=== PATIENT | female | born 1940 | race Caucasian/White ===

== ENCOUNTER → 2019-03-13 11:12 | Outpatient (CLI) | payer MEDICARE, OTHER, SELFPAY ==
--- NOTE | 2019-03-13 11:14 | DI.RAD.S_ITS ---
PROCEDURE: XR LUMBAR SPINE MIN 4V INDICATIONS: low back pain TECHNIQUE: 5 views of the lumbar spine were acquired. COMPARISON: None. FINDINGS: Bones: 5 nonrib-bearing vertebrae are present. There is grade 1 anterolisthesis of L4 on L5 and L5 on S1. Degenerative endplate changes and bilateral facet arthrosis throughout lumbar spine is seen more prominent at L4-5 and L5-S1 levels. No vertebral body compression fractures. No suspicious bony lesions. Soft tissues: Overlying bowel gas pattern is normal. No suspicious soft tissue calcifications. Oblique images: No gross pars defects. IMPRESSION: Degenerative disc disease throughout lumbar spine. Grade 1 anterolisthesis of L4 on L5 and L5 on S1. No gross pars defect. No acute compression fracture. Dictated by: Mac Quezada M.D. on 03/13/2019 at 13:23 Approved by: Mac Quezada M.D. on 03/13/2019 at 13:25
== END ==
PROVIDERS: PCP Family Medicine; Visit Provider Physical Medicine & Rehabilitation
DX: M54.5 Low back pain (principal); M51.36 Other intervertebral disc degeneration, lumbar region; M51.37 Other intervertebral disc degeneration, lumbosacral region; M43.16 Spondylolisthesis, lumbar region; M43.17 Spondylolisthesis, lumbosacral region
CPT/HCPCS: 72110; 99214

== ENCOUNTER → 2019-04-01 14:01 | Outpatient (CLI) | payer MEDICARE, OTHER, SELFPAY ==
--- NOTE | 2019-04-01 14:05 | DI.MRI.S_ITS ---
PROCEDURE: MR LUMBAR SPINE WO CON INDICATIONS: Low back pain TECHNIQUE: Noncontrast sagittal T1 spin echo and T2 fast echo, sagittal STIR, axial T1 and T2 fast spin echo through the lumbar spine. In cases with scoliosis, additional coronal T2 fast spin echo may be performed. COMPARISON: [facility], , L-SPINE WITHOUT CONTRAST, 06/01/2016, 9:05. FINDINGS: Image quality: Excellent. Alignment and Curvature: There is minimal anterolisthesis of L4 on L5. Bone Marrow: Marrow is of normal overall signal. No acute vertebral body compression fractures. Spinal Cord: Conus medullaris terminates at the L1 level. Visualized cord demonstrates normal signal and size. Paraspinous Soft Tissues: No paravertebral masses. L1-L2: Normal appearance. L2-L3: Disc desiccation signals and slightly decreased intervertebral disc space is seen. Diffuse disc bulge and bilateral facet arthrosis is noted with mild central canal stenosis and mild to moderate bilateral neuroforaminal narrowing. L3-L4: Decreased intervertebral disc space and degenerative endplate changes are seen. Broad-based disc bulge and bilateral facet arthrosis is noted with mild central canal stenosis and mild to moderate left-sided neural foramina narrowing. L4-L5: There is decreased intervertebral disc space and degenerative endplate changes. Broad-based disc bulge and bilateral facet arthrosis is seen causing moderate central canal stenosis and moderate to severe bilateral neural foramina narrowing. There is likely compression of bilateral exiting L4 nerve roots. L5-S1: Normal appearance. IMPRESSION: 1. Minimal anterolisthesis of L4 on L5. No compression fracture. No marrow edema. 2. Degenerative disc bulge and bilateral facet arthrosis at L2-3 through L4-5 levels causing mild to moderate central canal stenosis and bilateral neuroforaminal narrowing most prominent at L4-5 level as above. Dictated by: Mac Quezada M.D. on 04/01/2019 at 15:21 Approved by: Mac Quezada M.D. on 04/01/2019 at 15:27
== END ==
PROVIDERS: PCP Family Medicine; Visit Provider Physical Medicine & Rehabilitation
DX: M54.5 Low back pain (principal); M47.816 Spondylosis without myelopathy or radiculopathy, lumbar region; M51.36 Other intervertebral disc degeneration, lumbar region; M48.061 Spinal stenosis, lumbar region without neurogenic claudication
CPT/HCPCS: 72148

== ENCOUNTER 2019-04-04 09:42 | Outpatient (CLI) | payer MEDICARE, OTHER, SELFPAY ==
[2019-04-04] VITALS (7 sets, daily range): BP systolic 115–156; BP diastolic 42–97; PULSE 16–70; RESP 14–16; TEMP 37.4; O2SAT 95–100
--- NOTE | 2019-04-04 09:43 | DI.RAD.S_ITS ---
PROCEDURE: PAIN L/S FACET INJ/BLK 1ST ROYCE COMPARISON: None. INDICATIONS: SPONDYLOSIS FINDINGS: 6 intraoperative fluoroscopy images demonstrate needle placement at L4 L5 and S1 bilaterally. IMPRESSION: Fluoroscopy for pain management. Dictated by: Manuel Vora M.D. on 04/04/2019 at 14:21 Approved by: Manuel Vora M.D. on 04/04/2019 at 14:21
[2019-04-04] MEDS: MIDAZOLAM 5 MG/5 ML VIAL IV (10:33)
[2019-04-04] MEDS: fentaNYL 100 MCG/2 ML INJ 50 MCG IV (10:33)
[2019-04-04] MEDS: IOPAMIDOL 15 ML VIAL 3 ML INJ (10:45)
[2019-04-04] MEDS: BUPIVACAINE 0.5% (PF) VIAL 2 ML INJ (10:45)
[2019-04-04] MEDS: LIDOCAINE 1% 20 ML INJ 10 ML INJ (10:45)
[2019-04-04] MEDS: BETAMETHASONE 30 MG/5 ML MDV 12 MG INJ (10:46)
--- NOTE | 2019-04-04 10:49 | PC.NURSE ---
pt tolerated procedure well. Able to get off the table with standby assist. Transferred pt to pre procedure room for continued monitoring with [facility].
--- NOTE | 2019-04-04 10:53 | PM.PROC.1 ---
Procedures Date/Time Date of procedure: 04/04/19 Time of procedure: 10:53 General Procedure description: Procedure description: 1. FACET ARTHROPATHY PROCEDURES: 1. BILATERAL- L4, L5 and S1 MB BLOCKS PHYSICIAN: Néstor Bustillo, INDICATIONS Alta is referred by for treatment of Bilateral Axial LBP. DESCRIPTION OF PROCEDURE Fluoroscopically guided, contrast-controlled bilateral L4, L5 and S1 medial branch blocks with 0.5cc of 0.5% Marcaine. Following review of allergy and review of potential side effects and complications, including, but not necessarily limited to, infection, allergic reaction, local tissue breakdown, nerve injury, paralysis, stroke and possible , the patient indicated that the patient understood and agreed to proceed. An informed consent document was signed by the patient, witnessed by a nurse, and placed in the patient's chart. After review of previous anaesthesic history and IV conscious sedation the patient was deemed safe to proceed with todays procedure with IV conscious sedation as ASA class II designation. Safety time-out was performed to confirm patient ID, procedure to be performed and site of procedure. IV sedation was accomplished with a combination of 2mg of Versed and 50mcg of Fentanyl was administered by the RN after DO order, titrated to patient comfort during the course of the procedure while the patient remained responsive to all verbal commands In the prone position, following sterile prep and drape of the lumbar region, the right L4, L5 and S1 anatomical location of the medial branch of the dorsal ramus was identified fluoroscopically. Subsequently an anesthetic skin wheal using 1% lidocaine solution was initiated at each of the anatomical spots. Subsequently then a 22-gauge 3.5-inch spinal needle was atraumatically introduced and advanced under fluoroscopic guidance at each of the corresponding sites at the right L4, L5 and S1 MB. After negative aspiration, 0.2 cc of Isovue 200 was injected, confirming placement without vascular or intrathecal uptake. Subsequently then 0.5 cc of 0.5% Marcaine solution was injected at each of the corresponding sites at the right L4, L5 and S1 medial branch locations. The identical procedure was replicated on the left. The patient tolerated the procedure well without signs or symptoms of complications prior to transfer to the recovery area continued monitoring without incident. Post-procedure, the patient was monitored initiating provocative activities to measure the amount of relief from block of the facetogenic pain. The patient reported a VAS of 7 prior to the procedure and a post-procedure VAS of 1. It has been a pleasure to assist in the diagnostic and therapeutic care of your patient. Total Fluoroscopy Time: 24.8 seconds Total Conscious Sedation Time: 24min POST OP INSTRUCTIONS The patient was provided with a Pain Log to complete over the next several hours and subsequent days prior to the patient's follow up with the ordering physician. If the patient has binitrotoluene operator relief to the solution applied, then they may be a candidate for medial branch rhizotomy. The patient is aware, was provided, once again, with a Pain Log and will follow up with the referring physician for review and clinical correlation Néstor Bustillo DO Complications: none
--- NOTE | 2019-04-04 11:05 | PC.NURSE ---
ACCEPTED CARE OF PT IN POST PROC AREA IN STABLE CONDITION
== END 2019-04-04 11:25 | disposition home or self-care (01) ==
LOC: RAD 09:42
PROVIDERS: PCP Family Medicine; Visit Provider Physical Medicine & Rehabilitation
DX: M47.816 Spondylosis without myelopathy or radiculopathy, lumbar region (principal); M47.817 Spondylosis without myelopathy or radiculopathy, lumbosacral region
CPT/HCPCS: 64493; 64494; 99152; J0702; J2250; J3010

== ENCOUNTER 2019-07-25 10:41 | Outpatient (CLI) | payer MEDICARE, OTHER, SELFPAY ==
[2019-07-25] VITALS (11 sets, daily range): BP systolic 117–157; BP diastolic 56–81; PULSE 62–71; RESP 16–18; TEMP 36.7; O2SAT 94–98
--- NOTE | 2019-07-25 10:46 | DI.RAD.S_ITS ---
PROCEDURE: PAIN L/S MED/LAT N RFA BILAT INDICATIONS: SPONDYLOSIS FINDINGS: Fluoroscopic spot filming was performed to verify placement of spinal needles at the L4, L5 and S1 level(s), as labeled on the films. Appropriate location(s) of the needle tip(s) was confirmed by injection of iodinated contrast. IMPRESSION: Fluoroscopy for pain management. Dictated by: Manuel Vora M.D. on 07/25/2019 at 14:02 Approved by: Manuel Vora M.D. on 07/25/2019 at 14:02
[2019-07-25] MEDS: fentaNYL 100 MCG/2 ML INJ 50 MCG IV (12:27)
[2019-07-25] MEDS: BETAMETHASONE 30 MG/5 ML MDV 12 MG INJ (12:38)
[2019-07-25] MEDS: LIDOCAINE 1% 20 ML 10 ML INJ (12:38)
[2019-07-25] MEDS: BUPIVACAINE 0.5% (PF) VIAL 5 ML INJ (12:38)
[2019-07-25] MEDS: MIDAZOLAM 5 MG/5 ML VIAL IV (12:39)
--- NOTE | 2019-07-25 13:04 | PC.NURSE ---
ASSISTING PT OFF TABLE AND TRANSPORTING TO POST PROC AREA IN STABLE CONDITION.
--- NOTE | 2019-07-25 13:10 | P.PCN_ITS ---
Procedures Date/Time Date of procedure: 07/25/19 Time of procedure: 13:10 General Procedure description: PREOP DIAGNOSIS 1. RECALCITRANT FACET ARTHROPATHY, POST OP DIAGNOSIS 1. RECALCITRANT FACET ARTHROPATHY PROCEDURES 1. BILATERAL L4 AND L5 MEDIAL BRANCH RADIOFREQUENCY NEUROTOMY AND S1 DORSAL RAMUS BRANCH RADIOFREQUENCY NEUROTOMY, PHYSICIAN: Néstor Bustillo DO INDICATIONS: Alta is referred by Dr. Calderón for treatment of facet arthropathy. DESCRIPTION OF PROCEDURE Bilateral L4 and L5 medial branch radiofrequency neurotomy and right S1 dorsal ramus radiofrequency neurotomy under fluoroscopy with conscious sedation. The patient is well known to this clinic having undergone previous facet injections with good but temporary relief. The patient has experienced appropriate, concordant relief with previous facet and median branch blocks but the patient's pain has been recalcitrant to further conservative measures. Therefore, based upon the patient's relief and persistent symptoms, the patient is considered an appropriate candidate for facet rhizotomy. All of the patient's questions regarding the risks versus benefits of the procedure, including, but not limited to, bleeding, infection, temporary as well as lasting nerve injury, paralysis, stroke, and , as well treatment alternatives were answered to satisfaction. After obtaining informed consent, denial of pertinent drug allergies, as well as being made aware of the potential risks of bleeding, infection, spinal cord trauma, paralysis, temporary and permanent nerve damage, seizure, stroke, and possible , the patient was brought to the fluoroscopy suite and positioned prone on the fluoroscopy table. The lumbar region was prepped with Betadine and covered with a fenestrated drape in the usual sterile fashion. Appropriate monitors applied including pulse oximeter, pulse, and blood pressure for regular monitoring throughout the procedure. After review of previous anaesthesic history and IV conscious sedation the patient was deemed safe to proceed with todays procedure with IV conscious sedation as ASA class II designation. Safety time-out was performed to confirm patient ID, procedure to be performed and site of procedure. IV sedation was accomplished with a combination of 4mg of Versed and 50mcg of Fentanyl administered by the RN after DO order, titrated to patient comfort during the course of the procedure while the patient remained responsive to all verbal commands. After local infiltration using 1% lidocaine, under fluoroscopic guidance, a 10- cm RF insulated needle with a 10-mm active tip was positioned parallel to the junction of the right sacral ala and the superior articulating process where the S1 dorsal ramus resides. Needle placement was confirmed with sensory stimulation at 50 Hz, with motor stimulation of .5v on the right which produced local stimulation without radicular component. The stimulation was then increased to 1.5v with, once again, only local multifidus stimulation without radicular component. This was then followed by two discreet lesions performed at 80 degrees Celsius for 90 seconds each. The needle was then removed and the identical procedure was performed along the length of the right L5 medial branch with motor stimulation at .7v on the right. The identical procedure was once again performed along the length of the right L4 medial branch with motor stimulation of .5v on the right. The identical procedure was repeated on the left. The patient tolerated the procedure well without signs or symptoms of complications prior to transfer to the recovery area continued monitoring without incident. The patient was then transferred to the recovery area where they were observed for an appropriate period of time after the injection. The patient reported a VAS score of 9 prior to the procedure and a post-procedure VAS of 0. Total Fluoroscopy Time: 22.7 seconds Total Conscious Sedation Time: 34min POST OP INSTRUCTIONS The patient was provided a Pain Log to continue to record the patient's response to the target-specific procedure prior to the patient's follow-up visit with the referring physician. Additionally, specific post-injection care instructions and a contact number to our office were provided if concerns arise regarding possible complications associated with the procedure are suspected. Néstor Bustillo DO Complications: none
== END 2019-07-25 13:33 ==
LOC: RAD 10:45
PROVIDERS: PCP Family Medicine; Visit Provider Physical Medicine & Rehabilitation
DX: M47.817 Spondylosis without myelopathy or radiculopathy, lumbosacral region (principal); M47.816 Spondylosis without myelopathy or radiculopathy, lumbar region
CPT/HCPCS: 64635; 64636; 99152; 99153; J0702; J2250; J3010

== ENCOUNTER 2019-10-31 08:36 | Outpatient (CLI) | payer MEDICARE, OTHER, SELFPAY ==
[2019-10-31] VITALS (8 sets, daily range): BP systolic 112–148; BP diastolic 53–81; PULSE 74–91; RESP 16–17; TEMP 36.4; O2SAT 97–99
--- NOTE | 2019-10-31 08:38 | DI.RAD.S_ITS ---
PROCEDURE: PAIN L/S TRANSFORAMINAL INJECT INDICATIONS: SPONDYLOSIS FINDINGS: Fluoroscopic spot filming was performed to verify placement of spinal needles at the L4-L5 level(s), as labeled on the films. Appropriate location(s) of the needle tip(s) was confirmed by injection of iodinated contrast. Dictated by: Dylon Tmo M.D. on 10/31/2019 at 12:09 Approved by: Dylon Tom M.D. on 10/31/2019 at 12:20
[2019-10-31] MEDS: MIDAZOLAM 5 MG/5 ML VIAL IV (10:14)
[2019-10-31] MEDS: BUPIVACAINE 0.25% (PF) VIAL 2 ML INJ (10:20)
[2019-10-31] MEDS: IOPAMIDOL 15 ML VIAL 3 ML INJ (10:20)
[2019-10-31] MEDS: DEXAMETHASONE 10 MG/ML VIAL 20 MG INJ (10:21)
[2019-10-31] MEDS: BETAMETHASONE 30 MG/5 ML MDV 6 MG INJ (10:21)
--- NOTE | 2019-10-31 10:27 | PC.NURSE ---
ASSISTING PT OFF TABLE AND TRANSPORTING TO POST PROC AREA IN STABLE CONDITION. PASSING RN CARE OF PT OFF TO NIRANJAN Elizondo RN.
--- NOTE | 2019-10-31 10:33 | P.PCN_ITS ---
Procedures Date/Time Date of procedure: 10/31/19 Time of procedure: 10:34 General Procedure description: PREOP DIAGNOSIS 1. FORMAINAL STENOSIS WITH LE SYMPTOMS POST OP DIAGNOSIS 1. FORMAINAL STENOSIS WITH LE SYMPTOMS PROCEDURES 1. FLUOROSCOPICALLY GUIDED CONTRAST CONTROLLED TRANSFORAMINAL EPIDURAL STEROID INJECTION - RIGHT L4/5 TFESI PHYSICIAN: Néstor Bustillo DO INDICATIONS: Alta is referred by for treatment of Foraminal Stenosis with Right LE Symptoms FINDINGS Foraminal Nerve Root Compression secondary to disc disease and facet hypertrophy DESCRIPTION OF PROCEDURE: Following review of allergy and review of potential side effects and complications, including, but not necessarily limited to, infection, allergic reaction, local tissue breakdown, stroke, temporary or permanent nerve injury, paralysis, and possible , the patient indicated that the patient understood and agreed to proceed. An informed consent document was signed by the patient, witnessed by a nurse, and placed in the patient's chart. Additionally, other treatment options including medications, modalities, and physical therapy were reviewed with the patient. After review of previous anaesthesic history and IV conscious sedation the patient was deemed safe to proceed with todays procedure with IV conscious sedation as ASA class II designation. Safety time-out was performed to confirm patient ID, procedure to be performed and site of procedure. IV sedation was accomplished with 2mg of Versed was administered by the RN after DO order, titrated to patient comfort during the course of the procedure while the patient remained responsive to all verbal commands In the prone position following sterile prep and drape of the lumbar region, the Right L4/5 posterior neuroforamen was identified fluoroscopically. The skin was anesthetized via a 25-gauge 1.5-inch needle with 1% lidocaine solution. At this point, a 25-gauge 3.5-inch spinal needle was atraumatically introduced and advanced under fluoroscopic guidance through the posterior Right L4/5 neuroforamen to approximately the anterior aspect of the canal. Depth was confirmed on lateral view. Following negative aspiration, injection of approximately 1.5 cc of Isovue 200 under live fluoroscopy in the AP view confirmed excellent flow along the nerve root, into the epidural space without vascular or intrathecal uptake observed Radiological data, including multiple fluoroscopic views of the lumbosacral spine, reveal a spinal needle at the right L4/5 posterior neuroforamen. Subsequent views show flow of contrast material flowing superiorly and inferiorly along the nerve root confirming epidural flow. Subsequently, a test dose of 1.5cc of 0.25% marcaine solution was administered and patient was observed for two minutes for signs or symptoms of complications, including abdominal pain, shortness of breath, bilateral upper or lower extremity weakness, nausea and vomiting, prior to steroid injection. At this point, a total of 3cc or 20mg of dexamethasone and 6mg of betamethasone was injected without incident. The procedure tolerated the procedure well without signs or symptoms of complications prior to transfer to the recovery area continued monitoring without incident.The patient was then transferred to the recovery area where they were observed for an appropriate time after the injection. The patient reported a VAS score of 7 prior to the procedure and a post- procedure VAS of 0. Total Fluoroscopy Time: 15 seconds Total Conscious Sedation Time: 24min POST OP INSTRUCTIONS The patient was provided a Pain Log to continue to record their response to the target-specific procedure prior to follow-up visit with their referring physician. Additionally, specific post-injection care instructions and a contact number to our office were provided if concerns arise regarding possible complications associated with the procedure are suspected. Néstor Bustillo DO Complications: none
--- NOTE | 2019-10-31 13:59 | PC.NURSE ---
Pt returned from post procedure via wc. Alert she was able to transfer from w/c to chair. Resumed care from PATRICIA [place]
== END 2019-10-31 11:00 | disposition home or self-care (01) ==
LOC: RAD 08:37
PROVIDERS: PCP Family Medicine; Referring Provider Physical Medicine & Rehabilitation; Visit Provider Physical Medicine & Rehabilitation
DX: M48.061 Spinal stenosis, lumbar region without neurogenic claudication (principal); M51.16 Intervertebral disc disorders with radiculopathy, lumbar region
CPT/HCPCS: 64483; 99152; J0702; J1100; J2250; J3010

== ENCOUNTER → 2022-08-03 14:02 | Outpatient (CLI) | payer MEDICARE, OTHER, SELFPAY ==
--- NOTE | 2022-08-03 | DI.US.S_ITS ---
PROCEDURE: US CAROTID DOPPLER BI INDICATIONS: Peripheral vascular disease, unspecified TECHNIQUE: Color and pulse Doppler interrogation was performed of both carotid systems, with image documentation and velocity measurements. COMPARISON: None. FINDINGS: Stenosis calculations are based on SRU (Society of Radiologists in Ultrasound) criteria. Right side: Brachial blood pressure: 51/71 mm Hg. Common carotid artery peak systolic velocity: 100 cm/sec. Internal carotid artery peak systolic velocity: 91 cm/sec. Internal carotid artery end diastolic velocity: 17 cm/sec. External carotid artery peak systolic velocity: 124 cm/sec. ICA/CCA peak systolic ratio: 0.9 . Barbosa scale imaging description: Mild plaque Percent internal carotid artery stenosis: Less than 50% Vertebral artery: Flow direction is antegrade. Left side: Brachial blood pressure: 147/69 mm Hg. Common carotid artery peak systolic velocity: 110 cm/sec. Internal carotid artery peak systolic velocity: 101 cm/sec. Internal carotid artery end diastolic velocity: 32 cm/sec. External carotid artery peak systolic velocity: 109 cm/sec. ICA/CCA peak systolic ratio: 0.9 . Barbosa scale imaging description: Mild scattered plaque. Percent internal carotid artery stenosis: Less than 50% Vertebral artery: Flow direction is antegrade. IMPRESSION: Less than 50% bilateral internal carotid artery stenosis. Dictated by: Dennis Connelly [facility] Interpreted: Migue Delgadillo MD on 08/03/2022 at 15:28 Transcribed by: MORGAN on 08/03/2022 at 15:29 Approved by: Migue Delgadillo M.D. on 08/03/2022 at 22:16
== END ==
PROVIDERS: PCP Physician Assistant Medical; Referring Provider Internal Medicine Cardiovascular Disease; Visit Provider Internal Medicine Cardiovascular Disease
DX: I73.9 Peripheral vascular disease, unspecified (principal); I65.23 Occlusion and stenosis of bilateral carotid arteries
CPT/HCPCS: 93880

== ENCOUNTER → 2022-11-23 12:12 | Outpatient (CLI) | payer MEDICARE, OTHER, SELFPAY ==
--- NOTE | 2022-11-23 12:15 | DI.RAD.S_ITS ---
PROCEDURE: XR LUMBAR SPINE MIN 4V INDICATIONS: Low back pain right hip pain TECHNIQUE: 5 views of the lumbar spine acquired, including flexion and extension views. COMPARISON: [facility], , XR LUMBAR SPINE MIN 4V, 03/13/2019, 11:29. FINDINGS: Bones: 5 nonrib-bearing vertebrae are present. There is normal bony alignment. No vertebral body compression fractures. No suspicious bony lesions. Disc space narrowing hypertrophic facet joints noted in the lower lumbar spine resulting in grade 1 anterior spondylolisthesis at L4-5 Soft tissues: Overlying bowel gas pattern is normal. No suspicious soft tissue calcifications. Atherosclerotic calcification in the abdominal aorta noted without evidence of aneurysm. Flexion/extension: There is normal range of motion, with preserved normal alignment. IMPRESSION: Degenerative grade 1 anterior spondylolisthesis L4-5 Approved by: Cj Beth M.D. on 11/23/2022 at 14:04
== END ==
PROVIDERS: PCP Physician Assistant Medical; Referring Provider Physical Medicine & Rehabilitation; Visit Provider Physical Medicine & Rehabilitation
DX: M43.16 Spondylolisthesis, lumbar region (principal); M16.11 Unilateral primary osteoarthritis, right hip; M51.26 Other intervertebral disc displacement, lumbar region; M47.27 Other spondylosis with radiculopathy, lumbosacral region; M79.7 Fibromyalgia; M70.61 Trochanteric bursitis, right hip; K92.2 Gastrointestinal hemorrhage, unspecified; Z96.611 Presence of right artificial shoulder joint; Z96.612 Presence of left artificial shoulder joint
CPT/HCPCS: 20611; 72110; 99215; J1040

== ENCOUNTER 2022-12-13 10:14 | Outpatient (CLI) | payer MEDICARE, OTHER, SELFPAY ==
[2022-12-13] VITALS (8 sets, daily range): BP systolic 125–192; BP diastolic 60–89; PULSE 73–86; RESP 15–20; TEMP 36.1; O2SAT 97–100
--- NOTE | 2022-12-13 10:16 | DI.RAD.S_ITS ---
PROCEDURE: PAIN L/S TRANSFORAMINAL INJECT INDICATIONS: SPONDYLOSIS COMPARISON: [facility], , PAIN L/S TRANSFORAMINAL INJECT, 10/31/2019, 10:17. FINDINGS: Fluoroscopic spot filming was performed to verify placement of spinal needles at the right L4-5 level(s), as labeled on the films. Appropriate location(s) of the needle tip(s) was confirmed by injection of iodinated contrast. IMPRESSION: Right L4-5 facet injection under fluoroscopic guidance. Dictated by: Patrica Ross M.D. on 12/13/2022 at 14:08 Approved by: Patrica Ross M.D. on 12/13/2022 at 14:10
[2022-12-13] MEDS: MIDAZOLAM 2 MG/2 ML VIAL IV (11:24)
--- NOTE | 2022-12-13 11:44 | P.PCN_ITS ---
Date/Time/Diagnoses Date of procedure: 12/13/22 Time of procedure: 11:44 Pre-procedure diagnosis: 1. FORAMINAL STENOSIS WITH LE SYMPTOMS Post-procedure diagnosis: same Procedure Notes Procedure: 1. FLUOROSCOPICALLY GUIDED CONTRAST CONTROLLED TRANSFORAMINAL EPIDURAL STEROID INJECTION - RIGHT L4/5 TFESI Indications: [place] is referred by DOMENIC Driscoll for treatment of Foraminal Stenosis with Right LE Symptoms Physician: Néstor Bustillo Total Fluoroscopy time (seconds): 14 Total sedation minutes: 11 Complications: none Procedure in detail & Post-procedure care: FINDINGS Foraminal Nerve Root Compression secondary to disc disease and facet hypertrophy DESCRIPTION OF PROCEDURE Following review of allergy and review of potential side effects and complications, including, but not necessarily limited to, infection, allergic reaction, local tissue breakdown, stroke, temporary or permanent nerve injury, paralysis, and possible , the patient indicated that the patient understood and agreed to proceed. An informed consent document was signed by the patient, witnessed by a nurse, and placed in the patient's chart. Additionally, other treatment options including medications, modalities, and physical therapy were reviewed with the patient. After review of previous anaesthesic history and IV conscious sedation the patient was deemed safe to proceed with today?s procedure with IV conscious sedation as ASA class II designation. Safety time-out was performed to confirm patient ID, procedure to be performed and site of procedure. IV sedation was accomplished with a combination of 2mg of Versed was administered by the RN after DO order, titrated to patient comfort during the course of the procedure while the patient remained responsive to all verbal commands In the prone position following sterile prep and drape of the lumbar region, the right L4/5 posterior neuroforamen was identified fluoroscopically. The skin was anesthetized via a 25-gauge 1.5-inch needle with 1% lidocaine solution. At this point, a 25-gauge 3.5-inch spinal needle was atraumatically introduced and advanced under fluoroscopic guidance through the posterior right L4/5 neuroforamen to approximately the anterior aspect of the canal. Depth was confirmed on lateral view. Following negative aspiration, injection of approximately 1.5cc of Isovue 200 under live fluoroscopy in the AP view c onfirmed excellent flow along the nerve root, into the epidural space without vascular or intrathecal uptake observed Radiological data, including multiple fluoroscopic views of the lumbosacral spi ne, reveal a spinal needle at the right L4/5 posterior neuroforamen. Subsequent views show flow of contrast material flowing superiorly and inferiorly along the nerve root confirming epidural flow. Subsequently, a test dose of 1.5 cc of 1% lidocaine solution was administered and patient was observed for two minutes for signs or symptoms of complications, including abdominal pain, shortness of breath, bilateral upper or lower extremity weakness, nausea and vomiting, prior to steroid injection. At this point, a total of 3cc or 20mg of dexamethasone and 6mg of betamethasone was injected without incident. The procedure tolerated the procedure well without signs or symptoms of complications prior to transfer to the recovery area continued monitoring without incident. The patient was then transferred to the recovery area where they were observed for an appropriate time after the injection. The patient reported a VAS score of 7 prior to the procedure and a post- procedure VAS of 0. POST OP INSTRUCTIONS The patient was provided a Pain Log to continue to record their response to the target-specific procedure prior to follow-up visit with their referring physician. Additionally, specific post-injection care instructions and a contact number to our office were provided if concerns arise regarding possible complications associated with the procedure are suspected.
[2022-12-13] MEDS: IOPAMIDOL 15 ML VIAL 3 ML INJ (11:49)
[2022-12-13] MEDS: DEXAMETHASONE 10 MG/ML VIAL 20 MG INJ (11:50)
[2022-12-13] MEDS: BUPIVACAINE 0.25% (PF) VIAL 2 ML INJ (11:50)
[2022-12-13] MEDS: BETAMETHASONE 30 MG/5 ML MDV 6 MG INJ (11:50)
== END 2022-12-13 12:02 | disposition home or self-care (01) ==
LOC: RAD 10:14
PROVIDERS: PCP Physician Assistant Medical; Referring Provider Physical Medicine & Rehabilitation; Visit Provider Physical Medicine & Rehabilitation
DX: M48.061 Spinal stenosis, lumbar region without neurogenic claudication (principal); M51.16 Intervertebral disc disorders with radiculopathy, lumbar region
CPT/HCPCS: 64483; 99152; J0702; J1100; J2250; J3490

== ENCOUNTER → 2023-01-31 11:32 | Outpatient (CLI) | payer MEDICARE, OTHER, SELFPAY ==
--- NOTE | 2023-01-31 | DI.MRI.S_ITS ---
BREAST MRI OF BOTH BREASTS: 01/31/2023 CLINICAL: Left breast cancer. PROCEDURE: MR BREAST BI WO/W CON INDICATIONS: LEFT BREAST CANCER TECHNIQUE: The patient was placed prone in a dedicated breast imaging coil. Precontrast axial STIR and 3D FLASH without fat saturation sequences were obtained. Both before and after bolus injection of contrast, sequential 1-minute axial 3D FLASH with fat saturation sequences for 3 time points, with subtraction images and maximum intensity projections (MIP's) generated. Delayed sagittal FLASH images with fat saturation were also obtained. Contrast: 20 cc ProHance IV contrast. Computer-aided detection, including computer algorithm analysis of MRI image data for lesion detection and characterization, pharmacokinetic analysis, with further physician review for interpretation, was performed. COMPARISON: Mammogram 01/10/2023, 12/21/2022, 12/05/2022, 01/20/2021. Left breast ultrasound 12/21/2022. Left breast ultrasound-guided biopsy 01/10/2023. FINDINGS: Image quality: Excellent. There is mild background parenchymal enhancement. Right breast: No mass or suspicious enhancement. Left breast: 11:30 o'clock posterior depth enhancing mass measuring 1.2 x 0.7 x 0.5 cm, (13 and ). Kinetic analysis demonstrates slow initial phase and persistent delayed phase. Susceptibility artifact within the lesion from prior biopsy clip. This corresponds to the biopsy-proven invasive ductal carcinoma. No additional mass seen. Miscellaneous: No enlarged lymph nodes. IMPRESSION: KNOWN BIOPSY PROVEN MALIGNANCY 1. Right breast: No mass or suspicious enhancement. 2. Left breast: 11:30 o'clock posterior depth enhancing mass measuring 1.2 cm corresponding to the biopsy-proven invasive ductal carcinoma. 3. Lymph nodes: No enlarged lymph nodes. BIRADS 6. COMMENT: The imaging literature indicates that a negative contrast breast MRI examination has a high sensitivity and a moderate specificity for detecting and excluding invasive carcinomas to a detection threshold of 3-5 mm; nonetheless, appropriate clinical and mammographic follow-up are recommended. MRI is not sensitive for detecting DCIS (ductal carcinoma in situ) and may not detect large invasive neoplasms that show only minimal enhancement such as mucinous carcinoma. If there are suspicious calcifications or clinically worrisome palpable masses, then biopsy should still be considered. Invasive neoplasms can be hidden by co-existent and benign enhancement caused by mastitis, hormone therapy effects, radiation therapy, , and recent biopsy or surgery. False positive examinations can occur in a number of circumstances, including breasts that have recently been subject to invasive procedures and those that contain atypical ductal hyperplasia, hormonally stimulated glandular tissue, fat necrosis, or radial scars. Dictated by: Jordon Betts M.D. on 01/31/2023 at 14:10 This exam was interpreted at Station ID: [id number]. Electronically Signed By: Jordon Betts M.D. slc/:01/31/2023 14:28:08 ACR BI-RADS Category 6: Known biopsy proven malignancy 3346F
== END ==
PROVIDERS: PCP Physician Assistant Medical; Referring Provider Physician Assistant Medical; Visit Provider Physician Assistant Medical
DX: Z17.0 Estrogen receptor positive status [ER+]; C50.212 Malignant neoplasm of upper-inner quadrant of left female breast
CPT/HCPCS: 77049; A9579

== ENCOUNTER → 2023-04-12 12:30 | Outpatient (CLI) | payer MEDICARE, OTHER, SELFPAY ==
[2023-04-12 16:40] LABS: Add Manual Diff / Slide Review NO; Basophils Absolute Auto 100 /uL (0-100); Basophils Percent Auto 0.7 % (0-2); Eosinophils Absolute Auto 100 /uL (0-450); Hemoglobin 12.9 g/dL (12.0-16.0); Lymphocytes Absolute Auto 1900 /uL (1100-4500); Lymphocytes Percent Auto 22.8 % (25-40); Mean Corpuscular HGB Conc 33.9 % (30-36); Mean Corpuscular Hemoglobin 33.5 PG (26-34); Mean Corpuscular Volume 98.7 fL (80-100); Monocytes Absolute Auto 700 /uL (0-900); Monocytes Percent Auto 8.3 % (3-14); Neutrophils Absolute Auto 5700 /uL (1500-7000); Neutrophils Percent Auto 67.2 % (50-75); Platelet Count 228 X10^3/uL (150-400); Red Blood Cell Count 3.85 X10^6/uL (4.0-5.2); Red Cell Distribution Width 12.9 % (11.6-14.8); White Blood Cell Count 8.5 X10^3/uL (4.5-11.0)
[2023-04-12 16:52] LABS: Appearance Urine UA CLEAR; Bilirubin Urine UA NEGATIVE (NEGATIVE); Color Urine UA YELLOW; Glucose Urine UA NEGATIVE (Negative); Ketones Urine UA NEGATIVE (NEGATIVE); Leukocyte Esterase Urine UA NEGATIVE (NEGATIVE); Nitrite Urine UA NEGATIVE (Negative); Occult Blood Urine UA NEGATIVE (Negative); Protein Urine UA NEGATIVE (Negative); Urobilinogen Urine UA 0.2 E.U./dL (0.2)
[2023-04-12 17:04] LABS: BUN Creatinine Ratio 36.3 (6-22); Blood Urea Nitrogen 29 mg/dL (7-17); Calcium 9.7 mg/dL (8.4-10.2); Carbon Dioxide 24 mmol/L (22-32); Chloride 104 mmol/L (98-107); Estimated Glomerular Filt Rate > 60 mL/min (>60); Glucose 91 mg/dL (80-110); HEMOLYSIS < 15 (0-50); Potassium 4.1 mmol/L (3.4-5.1); Sodium 136 mmol/L (137-145)
[2023-04-12 17:06] LABS: Bacteria Urine Few (2-10); Culture Indicated Urine Specimen Cultured; RBC Urine 1-5/HPF (0-5/HPF); Squamous Epithelial Cell Urine 10-30 /HPF (0-5/HPF); WBC Urine 5-10/HPF (0-5/HPF)
== END ==
PROVIDERS: PCP Physician Assistant Medical; Referring Provider Orthopaedic Surgery; Visit Provider Orthopaedic Surgery
DX: Z01.818 Encounter for other preprocedural examination (principal); R73.9 Hyperglycemia, unspecified; Z01.812 Encounter for preprocedural laboratory examination; N39.0 Urinary tract infection, site not specified
CPT/HCPCS: 36415; 80048; 81001; 83036; 85025; 87077; 87086; 87186; 93005

== ENCOUNTER 2023-06-15 08:26 | Day surgery (SDC) | payer MEDICARE, OTHER, SELFPAY ==
[2023-05-17 12:40] VITALS: BMI 30.9
[2023-06-15] VITALS (12 sets, daily range): BP systolic 118–192; BP diastolic 41–76; PULSE 57–66; RESP 11–18; TEMP 35.6–36.2; O2SAT 94–98; BMI 30.9
--- NOTE | 2023-06-15 | DI.RAD.S_ITS ---
PROCEDURE: XR PELVIS 1-2V INDICATIONS: INTRA OP TECHNIQUE: Intra-operative view of the pelvis and hip acquired. COMPARISON: None. FINDINGS: Bones: Intraoperative devices prior to placement of arthroplasty prostheses are in expected positions. No fractures or suspicious bony lesions. Soft tissues: Overlying surgical retractors are present, along with other intraoperative changes. IMPRESSION: Trial hardware is unremarkable. Dictated by: Andrey Cunha M.D. on 06/15/2023 at 14:13 Approved by: Andrey Cunha M.D. on 06/15/2023 at 14:16
--- NOTE | 2023-06-15 06:00 | DI.RAD.S_ITS ---
PROCEDURE: XR HIP W PEL IF DONE RT 2V INDICATIONS: total right hip TECHNIQUE: 2 view(s) of the hip acquired. COMPARISON: None. FINDINGS: Bones: Patient is status post right hip arthroplasty, with hardware components in expected positions. The hip joint appears congruent. The visualized bony structures appear intact. Soft tissues: Overlying postoperative changes are noted. No suspicious soft tissue densities. IMPRESSION: Expected postoperative appearance of a right total hip arthroplasty. Dictated by: Andrey Cunha M.D. on 06/15/2023 at 14:08 Approved by: Andrey Cunha M.D. on 06/15/2023 at 14:09
[2023-06-15] MEDS: CELECOXIB 200 MG CAPSULE PO (09:35)
[2023-06-15] MEDS: ACETAMINOPHEN 325 MG TABLET 975 MG PO (09:35)
[2023-06-15] MEDS: LACTATED RINGERS 1,000 ML 42 ML IV (09:36)
[2023-06-15] MEDS: VANCOMYCIN 1,000 MG/200 ML PIGGYBACK 200 MG IV (10:10)
--- NOTE | 2023-06-15 11:05 | PM.PREOP ---
Pre-operative Note Interval Note History & Physical reviewed/Exam performed by Physician: Yes Changes to H&P: No
--- NOTE | 2023-06-15 11:05 | PM.OP.1 ---
Operative Date/Time/Diagnoses Date of procedure: 06/15/23 Time of procedure: 11:15 Pre-op diagnosis: Right hip OA Post-op diagnosis: same Procedure & Clinicians Procedure: Right total hip arthroplasty posterior approach Same procedure as scheduled: Yes Indications: The patient has had progressively worsening right hip pain with radiographic changes consistent with arthritis. Non-operative management has failed and the patient has requested total hip replacement. The risks, benefits and alternatives to surgery were discussed with the patient prior to proceeding. Risks discussed included, but were not limited to, failure to relieve pain, leg length discrepancy, dislocation, stiffness, infection, nerve damage, deep venous thrombosis, pulmonary embolism, stroke, coma, heart attack, permanent paralysis and , as well as the potential need for eventual revision of the prosthetic. Surgeon: Danyelle Wiggins Manager Retail Store: Omid Gupta Anesthesia Type: General and Spinal Operative Notes Findings: Severe right hip OA, adequate stability, soft bone Closure Type: primary Specimen(s): none sent Prosthetic devices, grafts, tissues, transplants, or devices: [employer] R3 size 48 cup, 32 x 48 neutral poly liner, 32+ 0 cobalt chromium head, size 0 standard offset collared polar stem, one 6.5 mm screw Estimated Blood Loss (mL): 250 Blood products transfused: none Procedure in detail: The patient was seen in the pre-operative area, where the patient identified the right hip as the operative site and this was marked with my initials. The patient received pre-operative antibiotics and was taken to the operating room and placed on the operative table in the left lateral decubitus position after satisfactory anesthesia. A linux network systems administrator out was performed. The right leg was prepared from the ankle to the iliac crest with ChloroPrep in the usual fashion and draped through sterile drapes. A PA was used throughout the procedure and was essential for retraction and safe implantation of the components. They were also helpful for achieving adequate hemostasis. The hip was approached through an approximately 20 cm incision centered over the greater trochanter and curving gently posteriorly as it went proximally. This was carried sharply to the fascia damián, which was divided and retracted with a self retaining retractor. The trochanteric bursa was excised with care being taken to avoid the sciatic nerve, which was identified and protected throughout the case. The short external rotators were incised and the capsulomuscular flap was raised and tagged for later repair. The hip was dislocated, and a femoral neck osteotomy performed approximately 15 mm above the lesser trochanter. Retractors were placed around the femur. The canal was opened with a box cutting osteotome, followed by a T handled reamer and a lateralizing reamer. The chili pepper broach was then used, followed by sequential broaching until there was good stability of the broach in the femur. Retractors were placed to expose the acetabulum. The labrum and central soft tissues were removed. Reaming was performed initially going up in 2 mm increments, then 1 mm increments until good bite was obtained with an odd sized reamer. The cup 1 mm larger than the last reamer was then inserted using the appropriate anteversion guides. It was further stabilized with a single screw. A trial neutral liner was placed. The broach was placed in the canal. A trial head and neck were then placed and the hip relocated and checked for leg length and stability. An intraoperative film confirmed the component position and no evidence of fracture. The patient was stable in the position of sleep, of squatting, and could be put through a range of motion with 45 degrees internal rotation without dislocation. At 90 degrees flexion, internal rotation to 70? was possible before dislocation. This was felt to be satisfactory and the appropriate components were opened, and the trials were removed. The acetabular liner was impacted into position. The final stem was then impacted into the prepared femoral canal. A brief Betadine soak was performed while trialing with head options. The hip was meticulously irrigated with normal saline. Finally the femoral head was impacted onto the stem. The acetabulum was cleared of all material and the hip relocated one final time. The capsulomuscular flap was then repaired to the greater trochanter though an awl hole using the tag sutures. The short external rotators were repaired with a nonabsorbable suture. The fascia damián was closed with Vicryl. The subcutaneous layer was closed with barbed sutures and SteriStrips. An Aquacel Ag dressing was applied and the patient was taken to recovery having tolerated the procedure well. Complications: none Post-operative Condition: stable Disposition: Acute Care Plan for aftercare: The patient will be maintained on a standard total hip replacement protocol with weight bearing as tolerated and posterior hip precautions. The patient will receive Aspirin and sequential compression devices for DVT prophylaxis. The patient will be discharged home when safe for the home environment.
[2023-06-15] MEDS: CEFAZOLIN 2 GM/100 ML PREMIX 100 ML IV ×2 (11:30→18:03)
[2023-06-15] MEDS: BUPIVACAINE LIPOSOME 266 MG/20 ML VIAL INJ (11:59)
[2023-06-15] MEDS: BUPIVACAINE 0.5% (PF) 30 ML, EPINEPHrine 0.15 MG INJ (12:01)
--- NOTE | 2023-06-15 12:12 | SUR.OPER ---
Lateral on a OR TABLE, head on pillow, gel axillary roll in place, bottom leg bent with gel pad under knee to foot, upper leg PREPPED AND DRAPED IN FIELD. ARMS supported by pillows and secured TO ARMBOARD WITH CLOTH TAPE OVER A TOWEL. LEFT LEG SECURED TO BED WITH CLOTH TAPE OVER PILLOWCASE.
[2023-06-15] MEDS: TRANEXAMIC ACID 1,000 MG VIAL 1000 MG INJ (13:06)
[2023-06-15] MEDS: TRAMADOL 50 MG TABLET PO (13:49)
[2023-06-15] MEDS: hydrOXYzine pamoate 25 MG CAPSULE PO (13:49)
[2023-06-15] MEDS: IBUPROFEN 400 MG TABLET PO ×2 (15:01→18:03)
[2023-06-15] MEDS: ACETAMINOPHEN 325 MG TABLET 650 MG PO ×2 (15:01→20:27)
[2023-06-15] MEDS: GABAPENTIN 300 MG CAPSULE PO ×2 (15:01→20:29)
[2023-06-15] MEDS: ASCORBIC ACID 500 MG TABLET 1000 MG PO ×2 (15:03→20:27)
--- NOTE | 2023-06-15 15:19 | PC.NURSE ---
Pt to room 220 via bed from PACU at 1420. Pt denies nausea or shortness of breath. Pt states she has pain to her right hip 7-10 but she has received pain medication just prior to coming to her room. Admitted Pt -and provided acetaminophen, ibuprofen, and gabapentin to reduce her pain further. SCD's are on and running. IVF infusing as ordered. Pt was given applesauce and water to drink. Pt oriented to room, call light, bed controls, and tv controls. NITHYA dsg is cdi with green light flashing as directed. Pt denies needs at this time and agrees to call for assistance as needed. Bed alarm on for safety.
[2023-06-15] MEDS: ONDANSETRON 4 MG/2 ML INJ IV (16:08)
[2023-06-15] MEDS: LACTATED RINGERS 1,000 ML 100 ML IV (16:08)
[2023-06-15] MEDS: LOSARTAN 50 MG TABLET 100 MG PO (16:38)
[2023-06-15] MEDS: TRAMADOL 50 MG TABLET 100 MG PO (16:38)
[2023-06-15] MEDS: DOCUSATE 100 MG CAPSULE PO (20:28)
[2023-06-15] MEDS: ASPIRIN EC 81 MG TABLET PO (20:29)
[2023-06-16] MEDS: CEFAZOLIN 2 GM/100 ML PREMIX 100 ML IV (03:20)
[2023-06-16 04:30] VITALS: BP 126/68; PULSE 61; RESP 18; TEMP 35.8; O2SAT 96
[2023-06-16] MEDS: ACETAMINOPHEN 325 MG TABLET 650 MG PO ×3 (05:22→14:56)
[2023-06-16] MEDS: IBUPROFEN 400 MG TABLET PO ×3 (05:22→14:56)
[2023-06-16] MEDS: LACTATED RINGERS 1,000 ML 100 ML IV (05:26)
[2023-06-16 06:24] LABS: Hematocrit 31.4 % (36-46); Hemoglobin 10.6 g/dL (12.0-16.0)
[2023-06-16 07:20] VITALS: RESP 18; TEMP 36.1; O2SAT 95
[2023-06-16] MEDS: LACTOBACILLUS ACIDOPHILUS TABLET 1 EACH PO (08:38)
[2023-06-16] MEDS: ASPIRIN EC 81 MG TABLET PO (08:38)
[2023-06-16] MEDS: valACYclovir 500 MG TABLET PO (08:38)
[2023-06-16] MEDS: CHOLECALCIFEROL (VITAMIN D3) 5,000 UNIT TABLET 5000 UNIT PO (08:38)
[2023-06-16] MEDS: MULTIVITAMIN 1 TABLET 1 TAB PO (08:38)
[2023-06-16] MEDS: DOCUSATE 100 MG CAPSULE PO (08:39)
[2023-06-16] MEDS: GABAPENTIN 300 MG CAPSULE PO ×2 (08:39→14:55)
[2023-06-16] MEDS: TRAMADOL 50 MG TABLET 25 MG PO (08:52)
[2023-06-16] MEDS: ASCORBIC ACID 500 MG TABLET 1000 MG PO (08:52)
[2023-06-16 08:53] VITALS: BP 144/51; PULSE 60
[2023-06-16] MEDS: LOSARTAN 50 MG TABLET 100 MG PO (08:53)
--- NOTE | 2023-06-16 09:19 | OT.IP.EVAL ---
Addendum entered and electronically signed by Sanjuana Vasquez OT 06/16/23 10:19: sent to Dr. Wiggins Original Note: Current Diagnoses Unilateral primary osteoarthritis, right hip (06/15/23) Surgery Performed Operation Date: 06/15/23 10:45 Actual Procedures p Total Hip Arthroplasty(Right) - Danyelle Wiggins MD Past Medical History (Last Updated 05/17/23 @ 13:15 by Ijeoma Parker, RN) Breast cancer (~12/2022) Degenerative joint disease of right hip Gastric bleed Greater trochanteric bursitis of right hip Herniated nucleus pulposus, L4-5 Spondylolisthesis at L4-L5 level Surgical History (Last Updated 05/17/23 @ 13:15 by Ijeoma Parker, RN) History of left cataract surgery History of left shoulder replacement History of lumpectomy of left breast (~02/13/23) History of right cataract surgery History of right shoulder replacement Occupational Therapy Inpatient Evaluation/Re-Eval M1 PT/OT-IP Prior Functional Status Start: 06/16/23 09:25 Freq: NEEDED Status: Active Protocol: Document 06/16/23 08:30 [facility] (Rec: 06/16/23 09:41 [facility] [id number]) Medical Review Prior Functional Status Medical History Reviewed Yes Communication Independent Mobility and Gait Pt states was using a SPC to get around in the house and in the community. Her garage is 80ft away from her house. Activities of Daily Living and IADL's Pt having pain with ADL and IADL needs. Prior Functional Level (Other details) Pt's daugther in law to stay with her for the weekend. Social History Household Members none Living Arrangements House Number of Floors (Floors) One Floor Number of Stairs To Enter/Railing? 2 small steps with right rail going up. Home Environment High Toilet,Walk in Shower, Bidet Home Equipment Four Wheel Walker,Straight Cane,Bedside Commode,Shower Seat without Backrest,Hand Held Shower,Long Handled Shoe Horn,Cleaning Manager Additional Social History Comment Pt states to sleep in the recliner initially. Pt also has a standard slate picker walker. M2 OT-IP Current Condition Start: 06/16/23 09:25 Freq: Status: Active Protocol: Document 06/16/23 08:30 [facility] (Rec: 06/16/23 09:41 [facility] [id number]) Occupational Therapy Current Condition Current Condition Evaluation Date 06/16/23 Treatment Diagnosis S/P R ALMA posterior approach Diagnosis Onset Date 06/15/23 Post Operative Precautions Posterior Hip Precautions No Hip Flexion > 90 degrees,No Hip Internal Rotation,No Hip Adduction Weight Bearing Status Weight Bearing Status Weight Bear as Tolerated M3 OT- IP Subjective and Pain Start: 06/16/23 09:25 Freq: Status: Active Protocol: Document 06/16/23 08:30 [facility] (Rec: 06/16/23 09:41 [facility] [id number]) OT- Subjective Occupational Therapy Visit Type Type Initial Evaluation Visit Start Time 08:30 Visit Stop Time 09:19 Total Visit Minutes 49 Occupational Therapy Visit Comments Patient Comments Pt agreed to get up and use the bathroom. Patient/Caregiver Goals TO go home OT Pain Assessment Pain When Pain Assessed During Mobility Pain Present Pain Present Pain Reported Location Right Hip Intensity 4 Scale Used Numeric (0 - 10) M4 OT- IP ADL's Start: 06/16/23 09:25 Freq: Status: Active Protocol: Document 06/16/23 08:30 [facility] (Rec: 06/16/23 09:41 [facility] [id number]) OT [id number] General Evaluation Self-Feeding Ability Independent OT ADL-Grooming General Evaluation Grooming Ability Independent Areas Needing Assistance Retrieving/Set-up of Grooming Items OT ADL-Oral Care Comments Oral Care Comments Pt not wanting to do at this time. OT ADL-Dressing General Eval Lower Body Dressing Ability Maximum Assistance Areas Needing Assistance Socks Comments OT Dressing Comments Educated and practices use of LB dressing equipment with pt. Educated to jai her RLE first and take out last. OT ADL-Toileting General Evaluation Toileting Ability Standby Assistance Comments OT Toileting Comments Pt able to do her hygiene need with good safety to follow her hip precaution from the BSC. OT ADL-Bathing Comments OT Bathing Comments Not performed. Pt's daughter in law to be able to assist. M5 OT- IP IADL's Start: 06/16/23 09:25 Freq: Status: Active Protocol: Document 06/16/23 08:30 [facility] (Rec: 06/16/23 09:41 [facility] [id number]) OT-Instrumental Activities of Daily Living Deficits IADL Deficits Identified Deficits Home Safety Awareness Awareness of Need for Assistance at Home Good Awareness Ability to Problem Solve Emergency Able to Problem Solve Situations Home Safety Comments Spoke of strategies to help take care of her dog and maintain her hip precautions. Pt's daughter in law to assist with her needs. Medication Management Medication Management No Deficits Identified Money Management Money Management No Deficits Identified Meal Preparation Meal Preparation Comments family/friends to assist Sheet Manager Sheet Manager Caregiver Provides Assist M6 OT- IP Functional Cognition Start: 06/16/23 09:25 Freq: Status: Active Protocol: Document 06/16/23 08:30 [facility] (Rec: 06/16/23 09:41 [facility] [id number]) Cognitive Factors Limiting Selfcare Function Cognitive Ability Level of Alertness Alert Patient Orientation Name,Age,Birthday,Month,Date, Year,Day of Week,Place, Situation Attention Span Ability Capable of Focused Attention, Capable of Sustained Attention Ability to Follow Commands Able to Follow Multi-Step Commands Safety Awareness No Deficits Noted Cognitive Comments Cognitive Assessment Comments Pt able to follow her hip precautions during ADl and mobility needs. OT- Vision and Hearing OT- Hearing Assessment OT- Hearing Assessment Hearing Impaired OT- Vision Assessment Visual Acuity Glasses For Reading Visual Attentiveness WFL Occular Pursuits WFL M7 OT- IP Mobility and Balance Start: 06/16/23 09:25 Freq: Status: Active Protocol: Document 06/16/23 08:30 [facility] (Rec: 06/16/23 09:41 [facility] [id number]) OT- Bed Mobility Assessment Supine to Sit Supine to Sit Assist Minimal Assistance Sit to Supine Sit to Supine Assist Minimal Assistance Scooting Scooting Up and Down in Bed Minimal Assistance OT-Transfer Assessment Sit to and From Stand Sit to and from Stand Standby Assistance,Minimal Assistance Transfers Transfer Ability Standby Assistance,Contact Guard Assistance Technique Transfer Destination Bed,Chair,Toilet Transfer Technique Stand Step Pivot Devices Transfer Assistive Devices Gait Belt,Front Wheeled Walker ,4 Wheeled Walker Comments Mobility Comments KHALIDA to assist for RLE management , pt states wanting to get out on the left side as does at home. Afterwards pt now open to get out on the right side as having difficulty to move her RLE even with strap to assist her. KHALIDA to stand from lower surfaces. SBA with fww and occasional CGA with 4ww and pt tends to ride the brakes. OT- Balance Assessment Sitting Balance and Reactions Static Sitting Balance Ability Normal Dynamic Sitting Balance Ability Good Standing Balance and Reactions Static Standing Balance Ability Good Dynamic Standing Balance Ability Fair M8 OT- IP Objective Assessments Start: 06/16/23 09:25 Freq: Status: Active Protocol: Document 06/16/23 08:30 [facility] (Rec: 06/16/23 09:41 [facility] [id number]) OT Gross Range of Motion Upper Extremity Range of Motion Assessment Within Functional Limits OT Strength Upper Extremity Strength Assessment Within Functional Limits OT-Muscle Tone Assessment Muscle Tone WNL Yes M9 OT- IP Assessment and Plan Start: 06/16/23 09:25 Freq: Status: Active Protocol: Document 06/16/23 08:30 [facility] (Rec: 06/16/23 09:41 [facility] [id number]) OT Summary Assessment and Plan Potential Rehabilitation Potential Excellent Analytic Complexity at Evaluation Low Summary OT Impairments Pain,Strength,Balance, Functional Mobility,Dressing, Toileting,Bathing,Toilet Transfers,Shower Transfers Progress Towards Goals Progressing Toward Goals Assessment Summary Pt low complexity and main barriers are pain, steps, bed mobility and will need assist for dressing and bathing needs . Pt able to incorporate her hip precautions for ADl and mobility needs. Pt to go home with assist and have outpt PT. Goals Self-Feeding Goal Independent Grooming Goal Independent Dressing Goal Independent Toileting Goal Independent Bathing Goal Independent Toilet Transfer Goal Independent Shower Transfer Goal Independent Days to Meet Goals 5 Frequency of Treatment Frequency Of Treatment Once a Day Treatment Plan OT Treatment Plan ADL Training,Functional Mobility,Patient/Family Education,Discharge Planning Discharge Recommendations OT Discharge Recommendations Home with Assistance, Outpatient PT Home Equipment Needs FWW Transportation Needs at Discharge Private Vehicle
--- NOTE | 2023-06-16 11:14 | PT.IIE ---
Current Diagnoses Unilateral primary osteoarthritis, right hip (06/15/23) Surgery Performed Operation Date: 06/15/23 10:45 Actual Procedures p Total Hip Arthroplasty(Right) - Danyelle Wiggins MD Surgical History (Last Reviewed 06/16/23 @ 11:19 by Omid Gupta PA-C) History of left cataract surgery History of left shoulder replacement History of lumpectomy of left breast (~02/13/23) History of right cataract surgery History of right shoulder replacement Medical History (Last Reviewed 06/16/23 @ 11:19 by Omid Gupta PA-C) Breast cancer (~12/2022) Degenerative joint disease of right hip Gastric bleed Greater trochanteric bursitis of right hip Herniated nucleus pulposus, L4-5 Spondylolisthesis at L4-L5 level Physical Therapy Inpatient Evaluation/Re-Eval M1 PT/OT-IP Prior Functional Status Start: 06/16/23 12:46 Freq: NEEDED Status: Active Protocol: Document 06/16/23 11:14 AB (Rec: 06/16/23 13:02 AB [id number]) Medical Review Prior Functional Status Medical History Reviewed Yes Communication able to make needs known Mobility and Gait pt stated that she is modified independent with all mobilities and ambulation using SPC but occasionally able to ambulate without AD indoors when her hip has less pain Activities of Daily Living and IADL's per OT note: Pt having pain with ADL and IADL needs. Social History Household Members none Living Arrangements House Number of Floors (Floors) One Floor Number of Stairs To Enter/Railing? 2 steps L rail ascending Home Environment High Toilet,Walk in Shower, Bidet Home Equipment Four Wheel Walker,Bedside Commode,Shower Seat without Backrest,Hand Held Shower,Long Handled Shoe Horn,Seismology Teacher Additional Social History Comment pt stated that her daughter-in -law will be staying with her for a few days to assist her; afterwards, she has friends that can assist her when needed but will not be able to stay with her. pt has a standard walker and hurrycane/tripod cane pt has a high bed and steps up on a step stool to get into the bed; pt plans to sleep on her recliner initially M2 PT-IP Current Condition Start: 06/16/23 12:46 Freq: NEEDED Status: Active Protocol: Document 06/16/23 11:14 AB (Rec: 06/16/23 13:02 AB [id number]) Physical Therapy Current Condition Current Condition Evaluation Date 06/16/23 Treatment Diagnosis s/p R ALMA posterior approach; difficulty in walking Onset Date 06/15/23 M3 PT-IP Subjective Start: 06/16/23 12:46 Freq: NEEDED Status: Active Protocol: Document 06/16/23 11:14 AB (Rec: 06/16/23 13:02 AB [email or web address]) Subjective Physical Therapy Visit Type Type Initial Evaluation Visit Start Time 11:14 Visit Stop Time 12:08 Total Visit Minutes 54 Number of DOCUMENTATION DESIGNER Visits 0 Physical Therapy Visit Comments Patient Comments agreeable to do PT Therapy Pain Assessment Pain When Pain Assessed At Rest Pain Present Pain Present Pain Reported Location Right Hip Intensity 3 Scale Used increases with mobility Pain Behaviors Guarding Pain Management Techniques Distraction,Modification of Treatment,Re-positioning, Timing of Activity with Medications M4 PT-IP Mobility and Gait Start: 06/16/23 12:46 Freq: NEEDED Status: Active Protocol: Document 06/16/23 11:14 AB (Rec: 06/16/23 13:02 AB [id number]) PT-Bed Mobility Assessment Supine to Sit Supine to Sit Maximum Assistance,1 Person Assistance PT-Transfer Assessment Sit to and From Stand Sit to and from Stand Contact Guard Assistance, Minimal Assistance,1 Person Assistance,Use of Upper Extremities Equipment Transfer Assistive Device Gait Belt,Front Wheeled Walker Orthotic/Prosthetic Devices or Brace: No Transfers Transfer Destination Toilet Transfer Technique ambulated Transfer Ability Level of Assist Contact Guard Assistance,1 Person Assistance,Use of Upper Extremities Comments Mobility Comments pt supine in bed. agreeable to do PT. pt only able to recall 1/3 hip precautions. educated pt on hip precautions . pt completed supine to sit max A and max cues. able to sit on EOB CGA. completed sit to stand from EOB min A and max cues for precautions and safety. pt requested to use the toilet. ambulated to the toilet using FWW ~ 12 ft CGA. assisted with brief management. completed sit to stand from the toilet using grab bar CGA and max cues for hip precautions. ambulated ~ 20 ft using FWW towards the sink CGA. able to maintain standing leaning against the counter SBA to CGA while completing handwashing. ambulated to the chair using FWW CGA. completed sit<>stand from the chair x 4 reps CGA with initial mod to max cues but after 2 reps able to complete with min cues. set up pt for lunch. call light within reach. pt needing constant cues for safety and precautions. pt needing increase time to process instructions and complete all tasks. caregiver training set up at 130pm today. Gait Assessment Gait Gait Assistance Required: Contact Guard Assist Distance (Feet) 20 Able to Maintain Weight Bearing Status Yes During Gait Assistive Devices Assistive Device Gait Belt,Front Wheeled Walker Orthotic/Prosthetic Devices or Brace: No Gait Deviations General Gait Pattern Antalgic,Decreased Stride Length,Decreased Feet Clearance Factors Limiting Gait Function Factors Limiting Gait Function Decreased Activity Tolerance, Decreased Strength,Difficulty Following Directions,Limited Range of Motion,Pain,Poor Balance,Poor Safety Awareness PT-Balance Assessment Sitting Balance and Reactions Static Sitting Balance Ability Good Dynamic Sitting Balance Ability Good Standing Balance and Reactions Static Standing Balance Ability Fair Dynamic Standing Balance Ability Fair Device Used FWW M5 PT-IP Objective Assessments Start: 06/16/23 12:46 Freq: NEEDED Status: Active Protocol: Document 06/16/23 11:14 AB (Rec: 06/16/23 13:02 AB [id number]) Orientation Orientation/Cognition Level of Alertness Alert Orientation Name,Place,Situation Language Function Ability Hard of Hearing Safety Awareness Decreased Safety Awareness Memory Description Short Term Impaired Strength Lower Extremity Strength Assessment Right Impaired Hip 3-/5 Knee 4-/5 Sensation Assessment Sensation Gross Sensation WNL Muscle Tone Muscle Tone WNL Yes M6 PT-IP Treatment Start: 06/16/23 12:46 Freq: NEEDED Status: Active Protocol: Document 06/16/23 11:14 AB (Rec: 06/16/23 13:02 AB [email or web address]) Physical Therapy Treatment Education Education Provided Precautions,Weight Bearing Status,Safety M7 PT-IP Assessment and Plan Start: 06/16/23 12:46 Freq: NEEDED Status: Active Protocol: Document 06/16/23 11:14 AB (Rec: 06/16/23 13:02 AB [email or web address]) PT Summary Assessment and Plan Potential Rehabilitation Potential Fair Status of Condition at Evaluation Evolving Summary Impairments Pain,ROM,Strength,Balance, Coordination,Sensation,Tone, Cognition,Bed Mobility, Transfers,Gait,Activity Tolerance Assessment Summary pt is an 83 y/o female s/p R ALMA posterior approach. pt has R hip posterior precautions and is WBAT RLE. pt requiring increase cues and needing increase time to complete all tasks. CLOF: CGA to min A with mobility using FWW but needing max cues for hip precautions and safety. Caregiver training set up for this afternoon at 130 pm. pt plans to go home with her DIL to assist her. will continue to assess progress to determine safe d/c plan. Goals Bed Mobility Goal Standby Assistance Transfer Goal Standby Assistance,Front Wheeled Walker Gait Goal Standby Assistance,Front Wheel Walker Gait Distance 150 Other Goals up/down 2 steps L rail + hurrycane/tripod cane CGA Days to Meet Goals 5 Frequency of Treatment Frequency Of Treatment Twice a Day Treatment Plan Physical Therapy Treatment Plan Bed Mobility Training,Transfer Training,Gait Training, Therapeutic Exercise,Balance Retraining,Post Op Education, Discharge Planning,Hot or Cold Pack,Neuromuscular Re-ed, Coordination Retraining,Manual Therapy Other Recommendations and Next Treatment caregiver trainin/22 @ Focus 130pm Precautions Posterior Hip Precautions No Hip Flexion > 90 degrees,No Hip Internal Rotation,No Hip Adduction Weight Bearing Status Weight Bearing Status Weight Bear as Tolerated Allowed Weight Bearing Amount (enter % RLE WBAT or #) (%) Recommendations To Nursing Amount of Assist Needed 1 Person Assist Discharge Recommendations PT Discharge Recommendations Home with 17/04 Assist Available,Home Health Equipment Needed for Home Before FWW Discharge Transportation Needs at Discharge Private Vehicle
--- NOTE | 2023-06-16 11:15 | PM.DS.1 ---
History of Present Illness History of Present Illness Date Patient Seen: 06/16/23 Time Patient Seen: 08:05 Chief complaint: Hip pain Narrative: Patient's pain is [id number]. Denies fever or chills. No nausea or vomiting. Discharge Providers Provider Discharge Date: 06/16/23 Primary care physician: Nae Driscoll PA-C Consults: 06/15/23 06:00 Consult to Anesthesiology Routine Comment: Consulting Provider: Anesthesiologist Reason for consultation: Regional block for post operative pain control 06/15/23 14:38 Consult to Discharge Planning Routine Comment: Consult to Occupational Therapy Evaluate & Treat Comment: Physician Instructions: Evaluate and treat Consult to Physical Therapy Evaluate & Treat Comment: Physician Instructions: post op ALMA protocol Discharge provider: Omid Gupta PA-C Summary Hospital Course Discharge Diagnosis: Severe right hip osteoarthritis BMI 30.9. Hospital Course: . Right total hip arthroplasty posterior approach Same procedure as scheduled: Yes Indications: The patient has had progressively worsening right hip pain with radiographic changes consistent with arthritis. Non-operative management has failed and the patient has requested total hip replacement. The risks, benefits and alternatives to surgery were discussed with the patient prior to proceeding. Risks discussed included, but were not limited to, failure to relieve pain, leg length discrepancy, dislocation, stiffness, infection, nerve damage, deep venous thrombosis, pulmonary embolism, stroke, coma, heart attack, permanent paralysis and , as well as the potential need for eventual revision of the prosthetic. Surgeon: Danyelle Wiggins Manufacturing Quality Technician: Omid Gupta Anesthesia Type: General and Spinal Operative Notes Findings: Severe right hip OA, adequate stability, soft bone Closure Type: primary Specimen(s): none sent Prosthetic devices, grafts, tissues, transplants, or devices: Wiggins and Nephew R3, Patient admitted to the hospital for right total hip arthroplasty, posterior approach. Patient consented to the same. Patient taken to the operating room June 15, 2023 and underwent right total hip arthroplasty, posterior approach. Patient will mobilize with physical therapy. Weightbearing as tolerated. Posterior hip precautions. Multimodal pain management. Discharge home today after physical therapy if safe for home environment. Status at Discharge Cognitive/behavioral status at discharge: at baseline, oriented Functional status at discharge: uses cane/walker Overall status at discharge: patient is progressing back to baseline Exam Vital Signs (past 8 hours): - 06/16/23 04:30 06/16/23 08:53 06/16/23 07:20 Temperature 96.5 F L 96.9 F L Pulse Rate 61 60 Respiratory Rate 18 18 Blood Pressure 126/68 144/51 H Pulse Oximetry 96 95 Oxygen Flow Rate 0 0 Oxygen Delivery Method Room Air Oxygen Flow Rate 0 Narrative Exam Narrative: Pleasant female in no apparent distress. BMI 30.9. Dressing is clean, dry and intact. Motor functions intact bilateral lower extremities. Sensation grossly intact to light touch bilateral lower extremities. Const General: cooperative and comfortable Nutritional Appearance: well nourished Orientation: alert Resp Effort & Inspection: normal respiratory effort and able to speak in complete sentences Objective Labs 06/16/23 05:20 Labs: Laboratory Results - last 24 hr 06/16/23 05:20 Hgb 10.6 L Hct 31.4 L PFSH Medical History Breast cancer (~12/2022) Degenerative joint disease of right hip Gastric bleed Greater trochanteric bursitis of right hip Herniated nucleus pulposus, L4-5 Spondylolisthesis at L4-L5 level Surgical History History of left cataract surgery History of left shoulder replacement History of lumpectomy of left breast (~02/13/23) History of right cataract surgery History of right shoulder replacement Family History Father Heart disease Prostate cancer Squamous cell carcinoma S/P hip replacement Mother Heart disease Brother Diabetes mellitus Social History household members: none Smoking Status: Never smoker alcohol intake: current Discharge Assessment & Plan Assessment and Plan Assessment: Patient progressing as expected status post right total hip arthroplasty, posterior approach Plan of Treatment: Multimodal pain management Weight-bearing as tolerated, posterior hip precautions Discharge home today after physical therapy if safe for home environment. Discharge Plan Discharge Plan Patient Disposition: Home Discharge orders & Medications Discharge Orders: Discharge (Order); Ordered 06/16/23 Ordered By: Omid Gupta Prescriptions: New acetaminophen 325 mg Tablet 650 mg PO Q6H Qty: 60 0RF aspirin 81 mg Tablet,Delayed Release (Dr/Ec) 81 mg PO BID Qty: 60 0RF tramadol 50 mg Tablet 100 mg PO TID PRN (Reason: Pain, Moderate (4-6)) Qty: 40 0RF ibuprofen 400 mg Tablet 400 mg PO Q4H Qty: 60 0RF docusate sodium 100 mg Capsule 100 mg PO BID Qty: 20 0RF Continued VITAMIN D (Vitamin D3) 5,000 iu PO QDAY Qty: 0 coenzyme Q10 [Co Q-10] 100 MG capsule 200 mg PO QDAY Qty: 0 valacyclovir [Valtrex] 500 mg Tablet 500 mg PO DAILY tamoxifen 10 mg tablet 10 mg PO DAILY sumatriptan 20 mg/actuation spray,non-aerosol 20 mg NASAL PRN PRN (Reason: Headache) Qty: 6 multivitamin [Daily Multi-Vitamin] tablet 1 tab PO DAILY krill oil 500 mg capsule 500 mg PO DAILY sulfasalazine 500 mg tablet,delayed release (DR/EC) 500 mg PO DAILY Qty: 360 losartan 100 mg tablet 100 mg PO DAILY gabapentin 300 mg capsule 300 mg PO TID Repatha SureClick 140 mg/mL pen injector 140 mg SUBCUT SEEINSTR Rx Instructions: every 14 days zolpidem 5 mg tablet 2.5 mg PO BEDTIME Probiotic Digestive Care 20 billion cell capsule 20 cell PO DAILY ascorbic acid (vitamin C) 1,000 mg capsule 1 g PO Q6H glucosamine HCl 1,500 mg tablet 1,500 mg PO DAILY Rx Instructions: administer with a meal turmeric 400 mg capsule 1,500 mg PO BID Discontinued tramadol 50 mg tablet 25 mg PO TID PRN (Reason: pain) Follow up/Referrals: Danyelle Wiggins MD [Physician] - (Two weeks as scheduled) Nae Driscoll PA-C [Primary Care Provider] - Diet/Activity/Treatments Diet: Diet as Tolerated Activity: Weight-bearing as tolerated, posterior hip precautions Cold/Heat Therapy: Ice to hip as needed Skin/Wound/Dressing Care Report to your healthcare provider any signs of infection, such as:: chills, fever, night sweats, increased pain, unusual drainage and unusual redness Dressing: Keep dressing clean and dry Visit Report/Discharge Packet Instructions: DI for Hip Replacement Stand Alone Forms: Patient Portal/API, Surgery Discharge Discharge Data Primary Care Provider: Nae Driscoll Attending Provider: Danyelle Wiggins Quality VTE Deep Vein Thrombosis/Pulmonary Embolism Present on Admission: No
--- NOTE | 2023-06-16 13:02 | CM.DANOTE ---
Addendum entered by KELSEY Colon 06/16/23 14:59: ADD: Per PT, pt was able to participate and do stairs this afternoon with Dtr kiara present for CG training but pt will only have 24/7 assist for a couple days and then just check ins from family and recommending HH. SW met bedside with pt and Dtr kiara and discussed HH services and frequency and both in agreement of HH and reviewed the HH Choice List and no HH preference and CC Roxanne kindly made referral to [facility] based on Vendor Calendar and covering [facility]. F2F and HH orders completed and faxed along with d/c summary and CC Roxanne called [facility] with new referral and update on pt discharge today. SW provided [facility] brochure to pt and Dtr kiara and RN present and providing d/c instructions for d/c in the next few minutes. BF Original Note: Patient is an 83 yo female who was admitted on 06/15/23 for RTHA. Pt has [employer] for insurance and her PCP is Nae Driscoll. EMR was reviewed. Per Ortho PA, pt tolerated procedure well and worked with PT/OT and now medically stable to d/c home today. Per PT/OT, recommending safe d/c home with family assist and outpt PT. SW met bedside with pt at the end of her session with OT krysta and explained role and pt confirms she lives in [place] alone in her home and is independent with ADL's at baseline and still drives. Pt typically does not use DME for ambulation but prior to surg was more limited in her mobility. Pt denies any hx of HH or SNF. Pt confirms that plan is to d/c home and her local son and Dtr kiara will provide transport today and Chilo craig plans to stay with pt for the next few days and assist as needed. Pt states she has outpt PT already set up for next week and does not anticipate any needs and hopeful for home right after lunch. Plan: Patient to d/c home via family POV and outpt PT already set up. no further SW needs at this time. KELSEY Colon Discharge Planning/Care Management CM Discharge Assessment Start: 06/16/23 13:00 Freq: Status: Active Protocol: Document 06/16/23 13:00 BF (Rec: 06/16/23 13:02 BF [id number]) Discharge Planning Assessment Assigned Machine Adjuster Leader KELSEY Henao DPOA/Assigned Designee Name son Curtis Contact Information [phone] Advance Directives? Yes Advance Directives on File No History Provided By Patient,Medical Record Has Patient been admitted in last 30 No days? Prior Living Arrangements House Household Members none Comment Local son and Dtr inlaw Type of transporation used prior to Drives own vehicle admit Independent with ADL's Yes Is patient alert and oriented? Yes Needs Assistance With Home Chores / Shopping Caregiver for Another No Community Services used prior to Physical Therapy admission: Comment established with outpt PT already DME Already Rented / Owned FWW / Walker Patient/Family Preference OP PT Therapy Barriers to Discharge No Discharge Plan Home Community Services Physical Therapy Transportation Arrangement Dtr inlaw plans to transport at d/c Referrals Initiated None needed Whiteboard Updated in Patient Room with Yes name and ext. # of Machine Adjuster Leader Review Status In Process Please Provide Date Initial DC 06/16/23 Assessment Was Performed Next Review Type Continued Stay Review Pre-Anesthesia Assessment Start: 05/17/23 12:40 Freq: Status: Active Protocol: Document 05/17/23 12:40 TC (Rec: 05/17/23 13:37 TC [id number]) Pre-Anesthesia Assessment Preferred Name [facility] Patient Information Reviewed Via Phone Assessment Assessment Completed With Patient Diagnostic Results BMP/CMP,CBC,EKG,Urinalysis Comment 04/12/23- Primary Care Provider Nae Driscoll Medical Clearance Received Not Applicable Seen Specialist in Last 12 Months Yes Specialist Seen Orthopedist,Other Comment pain management Primary Language Uzbek Preferred Language Uzbek Earth Science Technician Required No Height 162.56 cm Weight 81.647 kg Body Mass Index (BMI) 30.9 Hearing Ability Hearing Impaired,Use of Hearing Aid Visual Assist Magnifying Glass Dentition Type Teeth, Natural Present Barriers to Learning None Hx Anesthesia Reactions No Hx Family Anesthesia Reaction Yes: father was sensitive and came out with hallucinations Hx Malignant Hyperthermia No Hx Blood Transfusions No Hx Blood Transfusion Reaction No Anesthesia Review Requested No Cloth Winder No alcohol intake current alcohol intake frequency a few times a month Smoking Status Never smoker Comment CBD gummies Pain Present Pain Reported Comment right hip Musculoskeletal Symptoms Back Pain,Joint Pain,Joint Stiffness History of Falling (Recent or History of No ) Patient is completely paralyzed or No completely immobile Ambulatory Aid Crutches/cane/walker Prosthesis or Orthotic Device Cane Mental Status Oriented to own ability Comment purchased walker for post op Is patient on oxygen? No Does patient have MATTHEWS/SOB No Hx Sleep Apnea No CPAP/BIPAP use not prescribed Currently Taking a Beta Day No Anti-Coagulant Therapy No Cardiac Testing No Hx Pacemaker/ICD No Pacemaker Rep Required? No Cardiac Clearance Received No Diet Type At Home Regular Dysphagia No Gastrointestinal Symptoms Constipation Comment since starting tamoxifen Chronic UTI No Urinary Catheter Present No Hx Urinary Self Catheterization No Diabetes No HgbA1C 6.0 Date 04/12/23 Patient No Lactating No Hx Drug Resistant Organism No Presence of External or Internal Medical Yes: sanam shoulders, sanam Iol's Devices Have you had any close contact with No someone diagnosed with COVID-19? Are you experiencing any of these No symptoms symptoms? Evaluation/Screening for possible COVID- Yes 19 infection completed? Received a COVID vaccine? Yes Received all doses? Yes Marital Status Lives With none Current Living Arrangements House Number of Floors (Floors) One Floor Number of Stairs To Enter/Railing? 2 stairs with railing Support System Family Does the Patient Have Assistance After Yes Surgery Patient Discharge Plan Description Return Home Feels Safe in Current Environment Yes Been Physically Hurt or Threatened By a No Person in Current Environment Do you have thoughts of harming yourself None or others? Are you currently considering suicide? No Do you have a plan to hurt yourself or No Plan others? If Yes, Provider Notified No Do You Have Any Spiritual Beliefs That No May Affect Your HC Choices? Do You Have Any Cultural Practices That No May Affect Your HC Choices? Health Care Proxy/Next of Kin [place] Health Care Proxy -Curtis Emergency Contact Name Curtis belinda Lora Emergency Contact - Guido Advance Directives? Yes Advance Directives on File No Requested Patient Bring Advanced Yes Directives DOS PAC Instructions Bring CPAP/BIPAP,Do not shave/ clip surgical site,Durable medical equipment,Medications to take/avoid,Nasal antibiotic ,No ETOH/petroleum product on skin DOS,Pre-surgical wash, Sensory aids,Sturdy shoes/ comfortable clothes,Do not bring valuables and remove jewelry
--- NOTE | 2023-06-16 13:45 | PT.IPTN ---
Current Diagnoses Unilateral primary osteoarthritis, right hip (06/15/23) Surgery Performed Operation Date: 06/15/23 10:45 Actual Procedures p Total Hip Arthroplasty(Right) - Danyelle Wiggins MD Physical Therapy Treatment Note M2 PT-IP Current Condition Start: 06/16/23 12:46 Freq: NEEDED Status: Active Protocol: Document 06/16/23 11:14 AB (Rec: 06/16/23 13:02 AB [email or web address]) Physical Therapy Current Condition Current Condition Evaluation Date 06/16/23 Treatment Diagnosis s/p R ALMA posterior approach; difficulty in walking Onset Date 06/15/23 M3 PT-IP Subjective Start: 06/16/23 12:46 Freq: NEEDED Status: Active Protocol: Document 06/16/23 13:45 AB (Rec: 06/16/23 15:16 AB [email or web address]) Subjective Physical Therapy Visit Type Type Treatment Note Visit Start Time 13:45 Visit Stop Time 14:37 Total Visit Minutes 52 Number of APPLIANCE ASSEMBLER Visits 0 Physical Therapy Visit Comments Patient Comments agreeable to do PT Therapy Pain Assessment Pain When Pain Assessed At Rest Pain Present Pain Present Pain Reported Location Right Hip Intensity 2 Scale Used Numeric (0 - 10) Pain Management Techniques Modification of Treatment,Re- positioning,Timing of Activity with Medications M4 PT-IP Mobility and Gait Start: 06/16/23 12:46 Freq: NEEDED Status: Active Protocol: Document 06/16/23 13:45 AB (Rec: 06/16/23 15:16 AB [email or web address]) PT-Bed Mobility Assessment Supine to Sit Supine to Sit Minimal Assistance Sit to Supine Sit to Supine Minimal Assistance PT-Transfer Assessment Sit to and From Stand Sit to and from Stand Contact Guard Assistance Equipment Transfer Assistive Device Gait Belt,Front Wheeled Walker Orthotic/Prosthetic Devices or Brace: No Transfers Transfer Destination Bed,Chair Transfer Technique ambulated Transfer Ability Level of Assist Contact Guard Assistance,1 Person Assistance,Use of Upper Extremities Comments Mobility Comments pt's DIL in room for caregiver training. pt sitting on the chair. educated caregiver regarding pt's R posterior hip precautions. pt recalled 2/3 precautions. DIL stated that she will be staying with pt only until monday and has to work on monday. stated that her [id number] can stay with pt during the day and DIL will be staying with pt at night as long as needed. DIL stated that she can teach ROYCE on how to assist pt. educated DIL on how to use safety belt and how to assist pt. DIL was able to put safety belt on pt. assisted pt with sit to stand CGA and able to cue pt for technqiues. DIL was able to assist pt with ambulation using FWW CGA towards the bed ~ 15 ft. pt completed sit<>supine min A and cues for techniques. informed pt and DIL that PT recommending use of recliner to sleep on at this time. pt and DIL understood. pt ambulated in the hallway using FWW ~ 125 ft CGA. DIL was able to assist pt safely. educated pt and DIL with stair climbing. pt completed up/ down steps using L rail ascending and hurrycane min A. DIL was able to assist pt safely. assisted pt back to her room. pt ambulated from w/c to chair using FWW CGA. positioned pt on the chair. Left pt with NAC to assist and get pt ready for d/c pt and DIL without further concerns Gait Assessment Gait Gait Assistance Required: Contact Guard Assist,1 Person Assist Distance (Feet) 125 Able to Maintain Weight Bearing Status Yes During Gait Assistive Devices Assistive Device Gait Belt,Front Wheeled Walker Orthotic/Prosthetic Devices or Brace: No Gait Deviations General Gait Pattern Antalgic,Decreased Stride Length,Decreased Feet Clearance,Lateral Trunk Lean Factors Limiting Gait Function Factors Limiting Gait Function Decreased Activity Tolerance, Decreased Strength,Limited Range of Motion,Pain,Poor Balance,Poor Safety Awareness Stair Climbing Assessment Evaluation Level of Assist On Stairs Minimal Assistance,1 Person Assistance Devices Stair Climbing Assistive Devices Tripod Cane/Hurry Cane Technique/Endurance Stair Climbing Direction Ascend and Descend Stair Climbing Technique Step to Step Number of Steps Climbed 3 Stair Climbing Set # Repetitions (reps) 1 M5 PT-IP Objective Assessments Start: 06/16/23 12:46 Freq: NEEDED Status: Active Protocol: Document 06/16/23 11:14 AB (Rec: 06/16/23 13:02 AB [email or web address]) Orientation Orientation/Cognition Level of Alertness Alert Orientation Name,Place,Situation Language Function Ability Hard of Hearing Safety Awareness Decreased Safety Awareness Memory Description Short Term Impaired Strength Lower Extremity Strength Assessment Right Impaired Hip 3-/5 Knee 4-/5 Sensation Assessment Sensation Gross Sensation WNL Muscle Tone Muscle Tone WNL Yes M6 PT-IP Treatment Start: 06/16/23 12:46 Freq: NEEDED Status: Active Protocol: Document 06/16/23 13:45 AB (Rec: 06/16/23 15:16 AB [email or web address]) Physical Therapy Treatment Education Education Provided Precautions M7 PT-IP Assessment and Plan Start: 06/16/23 12:46 Freq: NEEDED Status: Active Protocol: Document 06/16/23 13:45 AB (Rec: 06/16/23 15:16 AB [email or web address]) PT Summary Assessment and Plan Potential Rehabilitation Potential Fair Summary Impairments Pain,ROM,Strength,Balance, Coordination,Sensation,Tone, Cognition,Bed Mobility, Transfers,Gait,Activity Tolerance Progress Towards Goals Slow Progress - Other Assessment Summary Caregiver training completed and GEMMA was able to assist pt safely. pt may go home when medically stable with assist from family. pt will require HHPT initially upon d/c. pt stated that she is going to borrow a FWW from her friend. DIL stated that if they are unable to borrow one, they can purchase one on their own. pt does not want to purchase FWW and go through her insurance. Goals Bed Mobility Goal Standby Assistance Transfer Goal Standby Assistance,Front Wheeled Walker Gait Goal Standby Assistance,Front Wheel Walker Gait Distance 150 Other Goals up/down 2 steps L rail + hurrycane/tripod cane CGA Days to Meet Goals 5 Frequency of Treatment Frequency Of Treatment Twice a Day Treatment Plan Physical Therapy Treatment Plan Bed Mobility Training,Transfer Training,Gait Training, Therapeutic Exercise,Balance Retraining,Post Op Education, Discharge Planning,Hot or Cold Pack,Neuromuscular Re-ed, Coordination Retraining,Manual Therapy Precautions Posterior Hip Precautions No Hip Flexion > 90 degrees,No Hip Internal Rotation,No Hip Adduction Weight Bearing Status Weight Bearing Status Weight Bear as Tolerated Allowed Weight Bearing Amount (enter % RLE WBAT or #) (%) Recommendations To Nursing Amount of Assist Needed 1 Person Assist Discharge Recommendations PT Discharge Recommendations Home with 17/04 Assist Available,Home Health Equipment Needed for Home Before FWW Discharge Transportation Needs at Discharge Private Vehicle
== END 2023-06-16 15:05 | disposition home or self-care (01) ==
LOC: OR 08:27 → AC 08:30
PROVIDERS: PCP Physician Assistant Medical; Referring Provider Orthopaedic Surgery; Visit Provider Orthopaedic Surgery
PROC: 0SR90JZ Replacement of Right Hip Joint with Synthetic Substitute, Open Approach (ICD-10-PCS; CPT 27130; principal; 2023-06-15 10:45)
DX: M16.11 Unilateral primary osteoarthritis, right hip (principal); C50.919 Malignant neoplasm of unspecified site of unspecified female breast; I10 Essential (primary) hypertension; E78.5 Hyperlipidemia, unspecified; M79.7 Fibromyalgia; K21.9 Gastro-esophageal reflux disease without esophagitis; Z79.810 Long term (current) use of selective estrogen receptor modulators (SERMs)
CPT/HCPCS: 27130; 36415; 72170; 73502; 85014; 85018; 97162; 97165; 97530; 97535; C1776; C9290; J0171; J0690; J2250; J2405; J2704; J3010